=== PATIENT | female | born 1990 | race Caucasian/White ===

== ENCOUNTER 2018-01-06 06:00 | Inpatient (IN) ==
[2018-01-06] MEDS ORDERED: Metoclopramide 10 MG/2 ML VIAL IVP PRN (06:52)
[2018-01-06] MEDS ORDERED: *HR* Nalbuphine 10 MG/ML AMPUL IVP PRN (06:52)
[2018-01-06] MEDS ORDERED: Naloxone 0.4 MG/ML INJ IVP PRN (06:52)
[2018-01-06] MEDS ORDERED: Famotidine 20 MG/2 ML VIAL IVP PRN (06:52)
[2018-01-06 07:18] LABS: Basophils % 0.3 %; Eosinophils # 0.1 K/mcL (0.0-0.6); Eosinophils % 0.6 %; Hematocrit 36.7 % (35.3-44.9); Hemoglobin 12.2 g/dL (11.5-15.4); Immature Granulocytes % 0.5 % (0-4); Lymphocytes # 2.5 K/mcL (0.6-4.6); Lymphocytes % 28.3 %; Mean Corpuscular HGB Conc 33.2 g/dL (31.6-35.5); Mean Corpuscular Hemoglobin 29.9 pg (28.0-33.3); Mean Platelet Volume 11.9 fL (9.4-12.4); Monocytes # 0.7 K/mcL (0.0-1.3); Monocytes % 7.5 %; Neutrophils # 5.5 K/mcL (1.6-8.9); Platelet Count 159 K/mcL (140-400); Red Blood Count 4.08 M/mcL (3.82-4.97); Red Cell Distribution Width 13.2 % (11.5-14.5); Segmented Neutrophils % 62.8 %
[2018-01-06 07:38] LABS: Amphetamine Screen,Urine Negative ng/mL (Cutoff=1000); Barbiturate Screen,Urine Negative ng/mL (Cutoff=200); Benzodiazepines Screen,Urine Negative ng/mL (Cutoff=200); Cannabinoid Screen,Urine Negative ng/mL (Cutoff = 50); Cocaine Screen,Urine Negative ng/mL (Cutoff= 300); Opiate Screen,Urine Negative ng/mL (Cutoff=300); Phencyclidine Screen,Urine Negative ng/mL (Cutoff=25)
[2018-01-06 07:39] LABS: Alanine Aminotransferase 8 Units/L (7-52); Aspartate Amino Transferase 12 Units/L (13-39); BUN/Creatinine Ratio 13 (6-26); Blood Urea Nitrogen 8 mg/dL (6-20); Lactate Dehydrogenase 131 Units/L (140-271); Uric Acid 5.2 mg/dL (2.3-7.6); eGFR For Non-African Americans > 60 (> 60)
[2018-01-06] MEDS ORDERED: miSOPROStol 25 MCG TABLET VG ONE (08:00)
[2018-01-06] MEDS ORDERED: EPHEDrine 50 MG/ML VIAL IVP PRN (08:57)
[2018-01-06] MEDS ORDERED: Ringers Solution, Lactated 500 ML IVC ONE (08:57)
[2018-01-06] MEDS ORDERED: Epidural Premix (fent/bupiv) 110 ML EP SCH (09:00)
--- NOTE | 2018-01-06 09:01 | Anesthesia Evaluation PreOp ---
Date of Encounter: 01/06/18 Time of Encounter: 08:59 - Past History Planned Operation: BETO Cardiac History: Denies any Significant Hx Pulmonary History: Denies Any Significant HX NEEDLE LEADER History: Denies Any Significant HX Other Medical History: Other (vWF - patient believes Type I) Anesthesia History: No Prior Anesthetic Complications, Past Anesthesia : Yes (39 weeks) Alcohol Use: none Drug use: none Medications and Allergies Desmopressin Acetate [Stimate] 150 mcg NS ONCE #1 mls 05/11/16 [Rx] Formula Tablet 1 tab PO DAILY 01/06/18 [History] 3 Allergy/AdvReac Type Severity Reaction Status Date / Time promethazine [From Phenergan] Allergy Palpitation Verified 01/06/18 06:57 s - Meds/Allergy Pre-op Review Medications Reviewed: Yes Allergies Reviewed: Yes Beta Blockers on Current Med List: No Anesthesia Results - Labs 01/06/18 06:56 01/06/18 06:57 Anesthesia Exam O2 Sat Height 1.55 m Weight 92.9 kg Vital Signs Temp Pulse Resp BP 97.0 F L 77 16 138/99 01/06/18 06:44 01/06/18 06:44 01/06/18 06:44 01/06/18 06:44 NPO (# of Hours): 6 Pain Scale: 4 Pain Scale Used: Numeric (1 - 10) - HEENT Pupil (Motor): Pupils equal Mallampati: II Teeth: Normal Oral Opening: Greater than 3 - NEEDLE LEADER LOC: Oriented NEEDLE LEADER Motor: Normal RUE, Normal LUE, Normal RLE, Normal LLE, Normal Face NEEDLE LEADER Sensory: Normal: RUE, LUE, RLE, LLE, Face - Cardiac Rhythm: Regular Murmur: None JVD: No Carotid Bruit: No - Pulmonary Breath Sounds: bilateral Clear Respiratory Effort: Symmetrical Anesthesia Assess/Plan ASA Score: 2 Modified [place] Scale for Level of Consciousness: Cooperative, oriented, and tranquil Anesthetic Plan: General (plan b), Regional (plan a) Autologous Blood: Yes Monitoring Plan: Standard Monitors Recovery Plan: PACU
[2018-01-06] MEDS: Ringers Solution, Lactated 1,000 ML IVC SCH ×3 (09:37→19:06)
[2018-01-06] MEDS ORDERED: Oxytocin 20 units/ LR 1000 mL 20 UNIT/1,000 ML BAG IVC ONE (12:44)
[2018-01-06] MEDS ORDERED: Oxytocin 20 units/ LR 1000 mL 20 UNIT/1,000 ML BAG IVC SCH ×2 (12:45→22:19)
[2018-01-06] MEDS ORDERED: 0.9 % Sodium Chloride 1,000 ML ONE (15:57)
--- NOTE | 2018-01-06 17:18 | OB Labor Progress Note ---
Date of Encounter: 01/06/18 Time of Encounter: 17:16 Labor Progress Note - Subjective Subjective: 27 yo female in labor 39.1 weeks. Ctxs Q 2-3 min. Category 1 tracing. - Cervix Cervix: 6/80/-1 - Heart Tones Heart Tones: 150-160s reactive tracing - Plan Plan: Current management.
[2018-01-06] MEDS ORDERED: Desmopressin Acetate SPRAY 5 ML BOTTLE NS ONE (21:47)
[2018-01-06] MEDS ORDERED: Acetaminophen 325 MG TABLET PO PRN (22:19)
[2018-01-06] MEDS ORDERED: Measles/Mumps/Rubella Vacc 0.5 ML VIAL SQ PRN (22:19)
--- NOTE | 2018-01-06 22:19 | OB/GYN Procedure Note ---
Delivery - Delivery Date: 01/06/18 Provider: Андрей Almonte Intrapartum events: none Delivery induction: AROM, oxytocin Delivery augmentation: pitocin Delivery monitor: external FHT, external uterine, internal FHT, internal uterine Anesthesia: none Quantitated Blood Loss: 200 - Infant (s) Infant A Infant Delivery Date: 01/06/18 Delivery Time: 22:18 Presentation: vertex Position: OA Route of delivery: Gender: Female Viability: Viable Pounds: 6 Ounces: 14 Weight Gram: 3.115 kg at 1 minute: 8 at 5 mins: 9 Shoulder Dystocia: not encountered Specimens collected: cord blood Placenta: spontaneous Cord: 3 umbilical vessels - Repair Episiotomy: none Laceration Description: None - Complications Delivery complications: none Delivery comments: Patient progressed quickly to complete and pushing when she hit 8 cm. Patient had to push. Currently had no epidural. Patient was able to bring it was held perineum without difficulty. Infant's head was in the perineum with 2 pushes. The rest of the infant was delivered with 1 push. cried immediately upon delivery. Cord was clamped cut. The infant was passed to nursing in attendance. Cord blood was obtained. Placenta was delivered spontaneously and intact. There were no cervical, vaginal, perineal or periurethral lacerations noted. Patient delivered a female weight 6 lbs. 14 oz. Apgars were 8 at 1 minute and 9 at 5 minutes. Estimated blood loss was 200 mL. - Disposition Mom disposition: stable in LDR [place] disposition: stable in LDR
[2018-01-07 04:19] LABS: Basophils % 0.1 %; Hematocrit 34.5 % (35.3-44.9); Immature Granulocytes % 0.4 % (0-4); Lymphocytes # 1.7 K/mcL (0.6-4.6); Lymphocytes % 12.4 %; Mean Corpuscular HGB Conc 34.8 g/dL (31.6-35.5); Mean Corpuscular Hemoglobin 30.8 pg (28.0-33.3); Mean Corpuscular Volume 88.5 fL (83.0-100.0); Mean Platelet Volume 12.1 fL (9.4-12.4); Monocytes # 1.1 K/mcL (0.0-1.3); Neutrophils # 11.1 K/mcL (1.6-8.9); Platelet Count 174 K/mcL (140-400); Red Cell Distribution Width 13.2 % (11.5-14.5); Segmented Neutrophils % 79.1 %
[2018-01-07] MEDS: Ibuprofen 600 MG TABLET PO PRN ×2 (07:47→20:38)
[2018-01-07] MEDS ORDERED: Prenatal Vit/FA 1 EACH TABLET PO SCH (09:00)
--- NOTE | 2018-01-07 18:08 | OB/GYN Progress Note ---
Date of Encounter: 01/07/18 Time of Encounter: 18:07 - Assessment and Plan (1) (spontaneous vaginal delivery) Current Visit: Yes Status: Acute Objective - Latest Vital Signs Latest vital signs: Vital Signs Temp Pulse Resp BP Pulse Ox 01/07/18 16:00 97.4 F L 82 12 130/86 98 01/07/18 11:31 98.2 F 77 16 139/92 01/07/18 08:18 98.5 F 69 16 144/97 98 01/07/18 02:45 97.9 F 75 16 131/82 98 01/07/18 01:30 98 F 92 16 101/53 97 01/07/18 00:15 97.5 F L 85 16 133/84 96 Intake and Output 01/07/18 01/07/18 01/07/18 07:59 15:59 23:59 Intake Total 940 / 940 Output Total 900 / 900 1400 / 1400 Balance -900 / -900 -460 / -460 Intake: Oral 940 / 940 Output: Urine 900 / 900 1400 / 1400 Other: Meal Lunch Percent of Meal Consumed 100% Weight 93.3 kg Patient Weight 01/07/18 23:59 Weight 93.3 kg - Exam Lungs: bilateral: normal Extremities: Present: normal Abdomen: Present: normal appearance Uterus: Present: normal, firm Uterus Position: 3 Fingers Below Umbilicus - Labs Labs: Laboratory Results - last 24 hr 01/07/18 04:07 WBC 14.0 H D RBC 3.90 Hgb 12.0 Hct 34.5 L MCV 88.5 MCH 30.8 MCHC 34.8 RDW 13.2 Plt Count 174 MPV 12.1 Immature Gran % 0.4 Seg Neutrophils % 79.1 Lymphocytes % 12.4 Monocytes % 8.0 Eosinophils % 0.0 Basophils % 0.1 Neutrophils # 11.1 H Lymphocytes # 1.7 Monocytes # 1.1 Eosinophils # 0.0 Basophils # 0.0
--- NOTE | 2018-01-07 18:10 | Discharge Summary ---
Date of Encounter: 01/07/18 Time of Encounter: 18:09 - Discharge Diagnosis (1) (spontaneous vaginal delivery) Priority: Primary Status: Acute - Discharge Medications Home Medications: Desmopressin Acetate [Stimate] 150 mcg NS ONCE #1 mls 05/11/16 [Rx] Formula Tablet 1 tab PO DAILY 01/06/18 [History] Allergies/Adverse Reactions: 3 Allergy/AdvReac Type Severity Reaction Status Date / Time promethazine [From Phenergan] Allergy Palpitation Verified 01/06/18 06:57 s Data Procedures and tests throughout hospitalization: Laboratory Tests 01/06/18 01/06/18 01/06/18 06:50 06:52 06:56 WBC 8.7 RBC 4.08 Hgb 12.2 Hct 36.7 MCV 90.0 MCH 29.9 MCHC 33.2 RDW 13.2 Plt Count 159 MPV 11.9 Immature Gran % 0.5 Seg Neutrophils % 62.8 Lymphocytes % 28.3 Monocytes % 7.5 Eosinophils % 0.6 Basophils % 0.3 Neutrophils # 5.5 Lymphocytes # 2.5 Monocytes # 0.7 Eosinophils # 0.1 Basophils # 0.0 BUN Creatinine Est GFR ( Amer) Est GFR (Non-Af Amer) BUN/Creatinine Ratio Uric Acid AST ALT Lactate Dehydrogenase Urine Opiates Screen Negative Ur Barbiturates Screen Negative Ur Phencyclidine Scrn Negative Ur Amphetamines Screen Negative U Benzodiazepines Scrn Negative Urine Cocaine Screen Negative U Marijuana (THC) Screen Negative Ur Drug Screen Interp See Below Blood Type O POSITIVE Antibody Screen NEGATIVE 01/06/18 01/07/18 06:57 04:07 WBC 14.0 H D RBC 3.90 Hgb 12.0 Hct 34.5 L MCV 88.5 MCH 30.8 MCHC 34.8 RDW 13.2 Plt Count 174 MPV 12.1 Immature Gran % 0.4 Seg Neutrophils % 79.1 Lymphocytes % 12.4 Monocytes % 8.0 Eosinophils % 0.0 Basophils % 0.1 Neutrophils # 11.1 H Lymphocytes # 1.7 Monocytes # 1.1 Eosinophils # 0.0 Basophils # 0.0 BUN 8 Creatinine 0.62 Est GFR ( Amer) > 60 Est GFR (Non-Af Amer) > 60 BUN/Creatinine Ratio 13 Uric Acid 5.2 AST 12 L ALT 8 Lactate Dehydrogenase 131 L Urine Opiates Screen Ur Barbiturates Screen Ur Phencyclidine Scrn Ur Amphetamines Screen U Benzodiazepines Scrn Urine Cocaine Screen U Marijuana (THC) Screen Ur Drug Screen Interp Blood Type Antibody Screen Labs on day of discharge: Labs from last 24 hours 01/07/18 04:07 WBC 14.0 H D RBC 3.90 Hgb 12.0 Hct 34.5 L MCV 88.5 MCH 30.8 MCHC 34.8 RDW 13.2 Plt Count 174 MPV 12.1 Immature Gran % 0.4 Seg Neutrophils % 79.1 Lymphocytes % 12.4 Monocytes % 8.0 Eosinophils % 0.0 Basophils % 0.1 Neutrophils # 11.1 H Lymphocytes # 1.7 Monocytes # 1.1 Eosinophils # 0.0 Basophils # 0.0 Date of admission: 01/06/18 06:23 Primary care physician: PCP NONE Consults: 01/06/18 22:19 Consult to Culinary Specialist [CONS] Routine Comment: Vaginal delivery, consult needed - Patient Status Disposition: Home, Self-Care Condition: Good Functional capacity at discharge: independent ambulation Overall status at discharge: patient is back to baseline - Discharge Instructions Follow Up With: NONE,PCP [Primary Care Provider] - - Diet and Activity Activity: increase activity as tolerated Diet: advance to your usual diet Hospital Course [employer] Time Attestation: Total time spent providing and/or coordinating discharge services: Exam - Constitutional Vitals: Temp Pulse Resp BP Pulse Ox 97.4 F L 82 12 130/86 98 01/07/18 16:00 01/07/18 16:00 01/07/18 16:00 01/07/18 16:00 01/07/18 16:00 General appearance IM: A&O X 3 - Respiratory Respiratory exam: Present: CTAB - Cardiovascular Cardiovascular exam IM: Present: RRR - GI/Abdominal GI/Abdominal exam IM: normal bowel sounds - External exam: normal external exam Uterus Position: 3 Fingers Below Umbilicus - VTE Reasons for not Prescribing Prophylaxis: Treatment not Indicated - Low risk for VTE
[2018-01-07 20:33] VITALS: BP 135/88
== END 2018-01-07 23:10 | disposition home or self-care (01) | DRG 775 ==
LOC: 1NENULAB 06:23 → 1NENUOBS 01-07 00:17
PROVIDERS: ADMIT Advanced Practice Midwife; ATTEND Obstetrics & Gynecology

== ENCOUNTER 2020-05-06 00:49 | Inpatient (IN) ==
[~2020-05-06 00:49] MED LIST: *HR* FentaNYL (PF) 100 MCG/2 ML VIAL IVP PRN; FLU Vac QV 20-21 (6Month+)/PF 0.5 ML SYRINGE IM ONE; Famotidine 20 MG/2 ML VIAL IVP PRN; Metoclopramide 10 MG/2 ML VIAL IVP PRN; Naloxone 0.4 MG/ML INJ IVP PRN; Ondansetron 4 MG/2 ML VIAL IVP PRN
[2020-05-06] MEDS ORDERED: Desmopressin Acetate SPRAY 5 ML BOTTLE NS ONE (01:08)
[2020-05-06 01:34] LABS: Basophils % 0.2 %; Eosinophils # 0.1 K/mcL (0.0-0.6); Eosinophils % 1.1 %; Hematocrit 40.8 % (35.3-44.9); Hemoglobin 13.4 g/dL (11.5-15.4); Immature Granulocytes % 0.2 % (0-4); Lymphocytes # 2.2 K/mcL (0.6-4.6); Lymphocytes % 17.7 %; Mean Corpuscular HGB Conc 32.8 g/dL (31.6-35.5); Mean Corpuscular Hemoglobin 30.5 pg (28.0-33.3); Mean Corpuscular Volume 92.7 fL (83.0-100.0); Mean Platelet Volume 10.8 fL (9.4-12.4); Monocytes # 0.6 K/mcL (0.0-1.3); Monocytes % 5.2 %; Neutrophils # 9.3 K/mcL (1.6-8.9); Platelet Count 189 K/mcL (140-400); Red Cell Distribution Width 11.8 % (11.5-14.5); Segmented Neutrophils % 75.6 %
[2020-05-06 01:36] LABS: White Blood Count 12.3 K/mcL (4.3-11.1)
[2020-05-06 01:51] LABS: Amphetamine Screen,Urine Negative ng/mL (Cutoff=1000); Barbiturate Screen,Urine Negative ng/mL (Cutoff=200); Benzodiazepines Screen,Urine Negative ng/mL (Cutoff=200); Cannabinoid Screen,Urine Negative ng/mL (Cutoff = 50); Cocaine Screen,Urine Negative ng/mL (Cutoff= 300); Opiate Screen,Urine Negative ng/mL (Cutoff=300); Phencyclidine Screen,Urine Negative ng/mL (Cutoff=25)
[2020-05-06] MEDS: miSOPROStoL 100 MCG TABLET PO SCH ×5 (01:59→20:22)
[2020-05-06] MEDS: Ringers Solution, Lactated 1,000 ML IVC SCH ×3 (02:00→17:52)
[2020-05-06 04:22] LABS: Adenovirus Not Detected (Not Detect); Bordetella Pertussis Not Detected (Not Detect); Chlamydophila pneumoniae Not Detected (Not Detect); Coronavirus 229E Not Detected (Not Detect); Coronavirus HKU1 Not Detected (Not Detect); Coronavirus NL63 Not Detected (Not Detect); Coronavirus OC43 Not Detected (Not Detect); Human Metapneumovirus Not Detected (Not Detect); Human Rhinovirus/Enterovirus Not Detected (Not Detect); Influenza A Subtype 2009 H1 Not Detected (Not Detect); Influenza B Not Detected (Not Detect); Mycoplasma pneumoniae Not Detected (Not Detect); Parainfluenza Virus 1 Not Detected (Not Detect); Parainfluenza Virus 2 Not Detected (Not Detect); Parainfluenza Virus 3 Not Detected (Not Detect); Parainfluenza Virus 4 Not Detected (Not Detect); Respiratory Syncytial Virus Not Detected (Not Detect); SARS-CoV-2 Not Detected (Not Detect)
[2020-05-06] MEDS ORDERED: DESMOPRESSIN ACETATE IVPB ONE (08:20)
[2020-05-06] MEDS ORDERED: SODIUM CHLORIDE 0.9% IVPB ONE (08:20)
[2020-05-07] MEDS: miSOPROStoL 100 MCG TABLET PO SCH ×2 (02:33→07:00)
[2020-05-07] MEDS ORDERED: miSOPROStoL 100 MCG TABLET VG ONE (08:00)
[2020-05-07] MEDS: miSOPROStoL 100 MCG TABLET VG SCH ×3 (14:51→21:49)
[2020-05-07] MEDS: *HR* FentaNYL (PF) 100 MCG/2 ML VIAL IVP PRN ×3 (14:51→18:43)
[2020-05-07] MEDS: Ringers Solution, Lactated 1,000 ML IVC SCH (18:35)
[2020-05-08 06:52] LABS: Basophils % 0.2 %; Eosinophils # 0.2 K/mcL (0.0-0.6); Eosinophils % 1.4 %; Hematocrit 37.4 % (35.3-44.9); Hemoglobin 12.3 g/dL (11.5-15.4); Immature Granulocytes % 0.4 % (0-4); Lymphocytes # 1.6 K/mcL (0.6-4.6); Lymphocytes % 12.9 %; Mean Corpuscular HGB Conc 32.9 g/dL (31.6-35.5); Mean Corpuscular Hemoglobin 30.4 pg (28.0-33.3); Mean Corpuscular Volume 92.6 fL (83.0-100.0); Mean Platelet Volume 10.5 fL (9.4-12.4); Monocytes # 0.8 K/mcL (0.0-1.3); Monocytes % 6.3 %; Neutrophils # 9.8 K/mcL (1.6-8.9); Platelet Count 163 K/mcL (140-400); Red Blood Count 4.04 M/mcL (3.82-4.97); Red Cell Distribution Width 11.8 % (11.5-14.5); Segmented Neutrophils % 78.8 %; White Blood Count 12.4 K/mcL (4.3-11.1)
== END 2020-05-08 09:24 | disposition short-term general hospital (02) | DRG 564 ==
LOC: 1NENULAB → UNDODISIN 14:21
PROVIDERS: ADMIT Advanced Practice Midwife; ATTEND Advanced Practice Midwife